=== PATIENT | male | born 1965 | race Caucasian/White ===

== ENCOUNTER → 2016-04-29 | Outpatient (CLI) | payer OTHER ==
[~2016-04-29] MED LIST: BUPRTAB51 PO; CLON1TAB3 PO; ESCI1TAB10 PO; KETO10TA PO; LAMO100T PO; LAMO200T PO; OXYC1TAB3 PO; PHEN-1042 PO; TAMS0.4C38 PO
--- NOTE | 2016-04-29 11:37 | DIAGNOSTIC IMAGING REPORT ---
KUB HISTORY: N20.0 [id number] COMPARISON: KUB 09/14/2015. FINDINGS: The bowel gas pattern is unremarkable. There are no dilated loops of small bowel to suggest an obstruction. No renal calculi. No ureteral calculi. No pneumoperitoneum or pneumatosis. IMPRESSION: No renal or ureteral stones. Electronically signed by: Naeem Parada M.D. 04/29/2016 11:36 AM Dictated Date/Time: 04/29/2016 11:34 AM
== END | disposition home or self-care (01) ==
LOC: C.RAD 10:45
PROVIDERS: ATTEND Nurse Practitioner Family
DX: N20.0 Calculus of kidney (principal)

== ENCOUNTER → 2017-03-30 | Outpatient (CLI) | payer OTHER ==
--- NOTE | 2017-03-30 15:57 | DIAGNOSTIC IMAGING REPORT ---
ORBITS FOR MRI HISTORY: pre-MRI screening. COMPARISON: None. FINDINGS: There are no radiopaque foreign bodies identified within the orbits. IMPRESSION: No radiopaque foreign bodies identified within the orbits. The above report was generated using voice recognition software. It may contain grammatical, syntax or spelling errors. Electronically signed by: Addy Gilbert M.D. 03/30/2017 3:55 PM Dictated Date/Time: 03/30/2017 3:55 PM
--- NOTE | 2017-03-30 17:03 | DIAGNOSTIC IMAGING REPORT ---
MRI OF THE LEFT KNEE CLINICAL HISTORY: Left knee pain. COMPARISON STUDY: No priors. TECHNIQUE: MRI of the left knee was performed utilizing proton density, T1, and T2-weighted sequences in the axial, sagittal, coronal planes. IV contrast was not administered for this examination. Note that interpretation is suboptimal without plain film correlate. FINDINGS: Menisci: The medial and lateral menisci are intact. Ligaments: There is mucoid degeneration of the anterior cruciate ligament with a "celery stalk" appearance. The fibers appear intact. The posterior cruciate ligaments is preserved. The medial and lateral collateral ligaments are within normal limits. Extensor mechanism: The extensor mechanism is intact. There is a 9 mm cystic structure identified within the anterior joint space anterior to the intercondylar notch seen on sagittal STIR image #11. Additional smaller cystic foci are suggested posteriorly, and these likely represent ganglion cysts. There is mild edema within Hoffa's fat pad, and this may be related to impingement. Articular cartilage and bone: The articular cartilage is intact and well maintained all 3 compartments. Normal marrow signal is preserved of the visualized bony structures. There are tiny marginal osteophytes. Joint effusion: None Soft tissues: The musculature surrounding the knee joint is normal in bulk and signal intensity. IMPRESSION: 1. There is no evidence of meniscal or ligamentous injury in the left knee. 2. There is a 9 mm cystic structure identified anterior to the intercondylar notch, likely representing a ganglion cyst. There is edema within the adjacent Hoffa's fat pad, and this may be related to an impingement phenomenon. Clinical correlation will be required. Electronically signed by: Lc Corona M.D. 03/30/2017 5:02 PM Dictated Date/Time: 03/30/2017 4:44 PM
== END | disposition home or self-care (01) ==
LOC: C.MRIBC 15:23
PROVIDERS: ATTEND Family Medicine
DX: M25.562 Pain in left knee (principal); G89.29 Other chronic pain

== ENCOUNTER → 2017-09-29 | Outpatient (CLI) | payer OTHER ==
[~2017-09-29] MED LIST changes: -CLON1TAB3 PO; +CLON1TAB5 PO; -KETO10TA PO; -LAMO100T PO; +METF1000 PO; -OXYC1TAB3 PO; -PHEN-1042 PO; -TAMS0.4C38 PO
[2017-09-29 11:22] LABS: HEMATOCRIT 42.7 % (42-52); HEMOGLOBIN 14.2 g/dL (14.0-18.0); MEAN CELL VOLUME 85.9 fL (80-100); MEAN CORPUSCULAR HEMOGLOBIN 28.6 pg (25-34); MEAN CORPUSCULAR HGB CONC 33.3 g/dl (32-36); MEAN PLATELET VOLUME 10.3 fL (7.4-10.4); PLATELET COUNT 208 K/uL (130-400); RED CELL DISTRIBUTION WIDTH CV 12.9 % (11.5-14.5); RED CELL DISTRIBUTION WIDTH SD 40.6 fL (36.4-46.3); WHITE BLOOD COUNT 2.93 K/uL (4.8-10.8)
== END | disposition home or self-care (01) ==
LOC: C.LAB 07:05
PROVIDERS: ATTEND Physical Medicine & Rehabilitation Sports Medicine
DX: Z01.812 Encounter for preprocedural laboratory examination (principal)